=== PATIENT | female | born 1950 | race African-American/Black ===

== ENCOUNTER 2023-07-03 14:19 | Emergency (ER) | payer OTHER ==
--- NOTE | 2023-07-03 15:19 | RAD REPORT ---
EXAM DESCRIPTION: CT - Abdomen Pelvis Wo Contrast - 07/03/2023 2:53 pm CLINICAL HISTORY: Abdominal pain. ABD PAIN COMPARISON: No comparisons TECHNIQUE: CT imaging of the abdomen and pelvis was performed without contrast. Solid organ, bowel a nd vascular assessment is limited due to lack of IV and oral contrast. All CT scans are performed using dose optimization technique as appropriate and may include automated exposure control or mA/KV adjustment according to patient size. FINDINGS: The lower lung barillas are clear.Small hiatal hernia. The liver, spleen, pancreas, adrenal glands and kidneys are within normal limits for a limited non-co ntrast examination. No bowel obstruction, free air, free fluid or abscess. The appendix is normal. Prominent sigmoid div erticulosis coli. High density material seen within the rectum which may represent blood product or s tool. 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 Moderate lower lumbar degenerative changes. IMPRESSION: Prominent sigmoid diverticulosis coli is noted. High density material is present within the rectum which could be blood product and/or stool. Followu p colonoscopy would be suggested. A limited non-contrast examination was performed as detailed.
[2023-07-03 15:20] LABS: Absolute Lymphocytes (CBC) 1.6 K/uL (0.7-4.9); Hematocrit 35.4 % (36.0-45.0); Lymphocytes % 15.3 % (15.3-44.8); MPV 7.8 fL (7.6-11.3); Platelets 348 thou/uL (152-406); RBC Red Blood Cell Count 4.27 M/uL (3.86-4.86)
[2023-07-03 15:21] LABS: Protime INR 1.22
--- NOTE | 2023-07-03 15:25 | RAD REPORT ---
EXAM DESCRIPTION: RAD - Chest Single View - 07/03/2023 3:19 pm CLINICAL HISTORY: PAIN Chest pain. COMPARISON: CHEST SINGLE VIEW dated 11/15/2014; CHEST PA AND LAT 2 VIEW dated 11/27/2010 FINDINGS: Portable technique limits examination quality. The lungs are grossly clear. The heart is normal in size. No displaced fractures. IMPRESSION: No acute intrathoracic process suspected.
[2023-07-03] MEDS ORDERED: METRONIDAZOLE 500mg IVPB 500 MG/100 ML BAG IV ONE (15:27)
[2023-07-03] MEDS ORDERED: CIPROFLOXACIN 400mg IV 400 MG/200 ML BAG IV ONE (15:27)
[2023-07-03] MEDS ORDERED: NA CHLORIDE 0.9% 1,000 ML ONE ×2 (15:32→20:53)
[2023-07-03 15:38] LABS: Albumin 3.3 g/dL (3.4-5.0); Bilirubin Direct 0.1 mg/dL (0-0.2); Bilirubin Indirect, Calculated 0.3 mg/dL (0.2-0.8); Bilirubin Total 0.4 mg/dL (0.2-1.0); Potassium 4.1 mEq/L (3.5-5.1); Protein, Total 7.5 g/dL (6.4-8.2); Troponin High Sensitivity 34.6 pg/mL (<58.9)
--- NOTE | 2023-07-03 17:02 | EDPHYS ---
Physician Documentation [facility] Name: Ana Lozada Age: 73 yrs Sex: Female : 1950 Arrival Date: 07/03/2023 Time: 14:19 Bed 19 Private MD: ED Physician Farhad Diaz HPI: 07/03 16:53 This 73 yrs old Black Female presents to ER via Wheelchair with complaints of Rectal tania Bleeding. 16:53 The patient presents to the emergency department with bleeding from the rectum/anus, tania that is moderate. Onset: The symptoms/episode began/occurred just prior to arrival. Context: the patient has no known special context relating to the rectal area complaint(s). Modifying factors: The symptoms are alleviated by nothing, remaining still, The symptoms are aggravated by nothing. The patient has not experienced similar symptoms in the past. Historical: - Allergies: 14:59 Iodine; cm10 - Home Meds: 14:49 None [Active]; cm10 - PMHx: 14:49 None; cm10 - Immunization history:: Adult Immunizations up to date. - Social history:: Smoking status: Patient denies any tobacco usage or history of. ROS: 16:54 Constitutional: Negative for fever, chills, and weight loss, Eyes: Negative for injury, tania pain, redness, and discharge, ENT: Negative for injury, pain, and discharge, Neck: Negative for injury, pain, and swelling, Cardiovascular: Negative for chest pain, palpitations, and edema, Respiratory: Negative for shortness of breath, cough, wheezing, and pleuritic chest pain, Back: Negative for injury and pain, : Negative for injury, bleeding, discharge, and swelling, MS/Extremity: Negative for injury and deformity, Skin: Negative for injury, rash, and discoloration, Neuro: Negative for headache, weakness, numbness, tingling, and seizure, Psych: Negative for depression, anxiety, suicide ideation, homicidal ideation, and hallucinations, Allergy/Immunology: Negative for hives, rash, and allergies, Endocrine: Negative for neck swelling, polydipsia, polyuria, polyphagia, and marked weight changes, Hematologic/Lymphatic: Negative for swollen nodes, abnormal bleeding, and unusual bruising, 16:54 Abdomen/GI: Positive for rectal bleeding, Exam: 16:54 Constitutional: This is a well developed, well nourished patient who is awake, alert, tania and in no acute distress. Head/Face: Normocephalic, atraumatic. Eyes: Pupils equal round and reactive to light, extra-ocular motions intact. Lids and lashes normal. Conjunctiva and sclera are non-icteric and not injected. Cornea within normal limits. Periorbital areas with no swelling, redness, or edema. ENT: Nares patent. No nasal discharge, no septal abnormalities noted. Tympanic membranes are normal and external auditory canals are clear. Oropharynx with no redness, swelling, or masses, exudates, or evidence of obstruction, uvula midline. Mucous membranes moist. Neck: Trachea midline, no thyromegaly or masses palpated, and no cervical lymphadenopathy. Supple, full range of motion without nuchal rigidity, or vertebral point tenderness. No Meningismus. Chest/axilla: Normal chest wall appearance and motion. Nontender with no deformity. No lesions are appreciated. Cardiovascular: Regular rate and rhythm with a normal S1 and S2. No gallops, murmurs, or rubs. Normal PMI, no JVD. No pulse deficits. Respiratory: Lungs have equal breath sounds bilaterally, clear to auscultation and percussion. No rales, rhonchi or wheezes noted. No increased work of breathing, no retractions or nasal flaring. Back: No spinal tenderness. No costovertebral tenderness. Full range of motion. Female : Normal external genitalia. Skin: Warm, dry with normal turgor. Normal color with no rashes, no lesions, and no evidence of cellulitis. MS/ Extremity: Pulses equal, no cyanosis. Neurovascular intact. Full, normal range of motion. Neuro: Awake and alert, GCS 15, oriented to person, place, time, and situation. Cranial nerves II-XII grossly intact. Motor strength 5/5 in all extremities. Sensory grossly intact. Cerebellar exam normal. Normal gait. Psych: Awake, alert, with orientation to person, place and time. Behavior, mood, and affect are within normal limits. 16:54 ECG was reviewed by the Attending Physician. 16:54 Abdomen/GI: Inspection: abdomen appears normal, Bowel sounds: normal, Palpation: abdomen is soft and non-tender, Rectal exam: rectal tone normal, hemorrhoid(s), are not appreciated, mass, is not appreciated, swelling, is not appreciated, tenderness, is not appreciated, fecal impaction, is not appreciated, Liver: no appreciated palpable abnormalities, Hernia: not appreciated, Vital Signs: 14:47 BP 173 / 85; Pulse 89; Resp 18; Temp 97.7; Pulse Ox 100% ; Weight 80.74 kg; Pain 0/10; cm10 15:00 BP 161 / 69; Pulse 71; Resp 18; Pulse Ox 100% ; cp4 16:00 BP 162 / 74; Pulse 74; Resp 18; Pulse Ox 100% ; cp4 17:00 BP 152 / 73; Pulse 71; Resp 18; Pulse Ox 100% ; cp4 18:00 BP 140 / 85; Pulse 76; Resp 18; Pulse Ox 100% ; cp4 19:00 BP 138 / 67; Pulse 73; Resp 16 S; Pulse Ox 100% on R/A; jw7 20:00 BP 130 / 57; Pulse 72; Resp 17 S; Pulse Ox 100% on R/A; jw7 20:54 BP 127 / 51; Pulse 74; Resp 16 S; Pulse Ox 100% on R/A; jw7 14:47 Pain Scale: Adult cm10 MDM: 14:38 Patient medically screened. tania 16:58 Differential diagnosis: diverticulitis, hemorrhoids, hemorrhagic shock, varices, tania hemorrhoids. Data reviewed: vital signs, nurses notes, lab test result(s), EKG, radiologic studies, CT scan, plain films. Consideration of Admission/Observation Escalation of care including admission/observation considered. I considered the following discharge prescriptions or medication management in the emergency department Medications were administered in the Emergency Department. See MAR. Independent interpretation of the following test(s) in the Emergency Department EKG: See my EKG interpretation above. Test considered but Not performed: Ultrasound no abd usg. Historians other than the Patient: Daughter/Son: son well informed. Care significantly affected by the following chronic conditions: nsaid, no htn, no dm. Counseling: I had a detailed discussion with the patient and/or guardian regarding the historical points, exam findings, and any diagnostic results supporting the discharge/admit diagnosis, lab results, radiology results, the need to transfer to another facility, for higher level of care, [facility] does not immediately have the required specialist. 07/03 14:40 Order name: Basic Metabolic Panel; Complete Time: 16: [place] 07/03 14:40 Order name: CBC with Diff; Complete Time: 16: [place] 07/03 14:40 Order name: LFT's; Complete Time: 16: [place] 07/03 14:40 Order name: Magnesium; Complete Time: 16: [place] 07/03 14:40 Order name: NT PRO-BNP; Complete Time: 16: [place] 07/03 14:40 Order name: PT-INR; Complete Time: 16: [place] 07/03 14:40 Order name: Troponin HS; Complete Time: 16: [place] 07/03 14:40 Order name: Lipase; Complete Time: 16: [place] 07/03 14:40 Order name: Type And Screen; Complete Time: 16: [place] 07/03 14:40 Order name: XRAY Chest (1 view); Complete Time: 16: [place] 07/03 14:53 Order name: Abdomen ; Complete Time: 16: [facility] 07/03 14:40 Order name: EKG; Complete Time: 14:41 [place] 07/03 14:40 Order name: Cardiac monitoring; Complete Time: 15: [place] 07/03 14:40 Order name: EKG - Nurse/Tech; Complete Time: 16:39 [place] 07/03 14:40 Order name: IV Saline Lock; Complete Time: 15: [place] 07/03 14:40 Order name: Labs collected and sent; Complete Time: 15: [place] 07/03 14:40 Order name: O2 Per Protocol; Complete Time: 15: [place] 07/03 14:40 Order name: O2 Sat Monitoring; Complete Time: 15: [place] 07/03 14:40 Order name: IV Saline Lock - Large Bore; Complete Time: 15:08 [place] EC:54 Rate is 74 beats/min. Rhythm is regular. QRS [place] is Normal. UT interval is normal. QRS tania interval is normal. QT interval is normal. No Q waves. T waves are Normal. No ST changes noted. Clinical impression: NSR w/ Non-specific ST/T Changes and No evidence of ischemia. Interpreted by me. Reviewed by me. Administered Medications: 15:23 Drug: Ciprofloxacin IVPB 400 mg 200 ml IVPB once over 60 mins Volume: 200 ml; Route: cp4 IVPB; Infused Over: 60 mins; Site: right antecubital; 16:25 Follow up: Response: No adverse reaction; IV Status: Completed infusion cp4 15:23 Drug: NS 0.9% IV 1000 ml IV at 1 bolus Per protocol; 1000 mL bolus Route: IV; Rate: 1 cp4 bolus; Site: right antecubital; 20:52 Follow up: Response: No adverse reaction; IV Status: Completed infusion; IV Intake: jw7 1000ml 16:25 Drug: metroNIDAZOLE IVPB 500 mg 100 ml IVPB at 200 ml/hr once over 30 mins Volume: 100 cp4 ml; Route: IVPB; Rate: 200 ml/hr; Infused Over: 30 mins; Site: right antecubital; 18:48 Follow up: Response: No adverse reaction; IV Status: Completed infusion cp4 20:15 Drug: tranexamic acid 1000 mg IV at per protocol once; administer at a rate not to jw7 exceed 100 mg per min Route: IV; Rate: per protocol; Site: right antecubital; 20:52 Follow up: Response: No adverse reaction; IV Status: Completed infusion; IV Intake: [id number] 20:42 Drug: NS 0.9% IV 1000 ml IV at 1 bolus Per protocol; 1000 mL bolus Route: IV; Rate: 1 jw7 bolus; Site: right antecubital; 20:53 Follow up: Response: No adverse reaction; IV Status: Infusion continued upon transfer; jw7 IV Intake: 250ml Disposition Summary: 07/03/23 17:01 Transfer Ordered Notes: Transfer Location: [facility] tania Reason: Higher level of care tania Condition: Stable tania Problem: new tania Symptoms: have improved tnaia Accepting Physician: to [facility](07/03/23 20:55) jw7 Diagnosis - GI Bleed/ Gastrointestinal hemorrhage, unspecified - lower tania - Diverticulosis of large intestine without perforation or abscess with bleeding tania Forms: - Medication Reconciliation Form tania - SBAR form tania Signatures: Dispatcher [employer] Farhad Bruce MD MD cha Waits, Jodi RN RN jw7 Camilla Estrada RN RN cm10 Kate Sibley cp4 Corrections: (The following items were deleted from the chart) 14:49 14:49 PMHx: Unable to Obtain; cm10 cm10 14:53 14:41 Abdomen Pelvis W Con+CT.RAD.BRZ ordered. EDMS EDMS 14:59 14:49 Allergies: No Known Allergies; cm10 cm10 18:21 17:01 to [facility] tania 20:55 18:21 to [facility] jw7
--- NOTE | 2023-07-03 17:02 | ER ---
Nurse's Notes [facility] Name: Ana Lozada Age: 73 yrs Sex: Female : 1950 Arrival Date: 07/03/2023 Time: 14:19 Bed 19 Private MD: Diagnosis: GI Bleed/ Gastrointestinal hemorrhage, unspecified-lower;Diverticulosis of large intestine without perforation or abscess with bleeding Presentation: 07/03 14:47 Chief complaint: Patient states: Rectal bleeding onset today at 1200. Pt states that cm10 she was sitting in her chair when the bleeding started. Pt denies any pain. pt noted to be bleeding in triage. Coronavirus screen: Vaccine status: Patient reports receiving the 2nd dose of the covid vaccine. Client denies travel out of the [place] in the last 14 days. Ebola Screen: Patient denies travel to an Ebola-affected area in the 21 days before illness onset. No symptoms or risks identified at this time. Initial Sepsis Screen: Does the patient meet any 2 criteria? No. Patient's initial sepsis screen is negative. Does the patient have a suspected source of infection? No. Patient's initial sepsis screen is negative. Risk Assessment: Do you want to hurt yourself or someone else? Patient reports no desire to harm self or others. Onset of symptoms was July 03, 2023. 14:47 Method Of Arrival: Wheelchair cm10 14:47 Acuity: TAMAR 2 cm10 Historical: - Allergies: 14:59 Iodine; cm10 - Home Meds: 14:49 None [Active]; cm10 - PMHx: 14:49 None; cm10 - Immunization history:: Adult Immunizations up to date. - Social history:: Smoking status: Patient denies any tobacco usage or history of. Screenin:46 [facility] ED Fall Risk Assessment (Adult) History of falling in the last 3 months, cp4 including since admission No falls in past 3 months (0 pts) Confusion or Disorientation No (0 pts) Intoxicated or Sedated No (0 pts) Impaired Gait No (0 pts) Mobility Assist Device Used No (0 pt) Altered Elimination No (0 pt) Score/Fall Risk Level 0 - 2 = Low Risk Oriented to surroundings, Maintained a safe environment, Educated pt \\T\\ family on fall prevention, incl call for assistance when getting out of bed, Assessed \\T\\ reinforced patient's understanding of fall precautions, Hourly rounding (assess needs \\T\\ fall precautionary measures) done. Abuse screen: Denies threats or abuse. Nutritional screening: No deficits noted. Tuberculosis screening: No symptoms or risk factors identified. Assessment: 16:46 General: Appears in no apparent distress. Behavior is calm, cooperative, appropriate cp4 for age. Pain: Denies pain. 19:29 General: Appears in no apparent distress. comfortable, Behavior is calm, cooperative. jw7 Pain: Denies pain. Neuro: Mari Agitation-Sedation Scale (RASS): 0 - Alert and Calm Level of Consciousness is awake, alert, obeys commands, Oriented to person, place, time, situation. Cardiovascular: Capillary refill < 3 seconds JVD is absent Patient's skin is warm and dry. Respiratory: Airway is patent Trachea midline Respiratory effort is even, unlabored, Respiratory pattern is regular, symmetrical. GI: Abdomen is round non-distended. : No deficits noted. No signs and/or symptoms were reported regarding the genitourinary system. EENT: No deficits noted. No signs and/or symptoms were reported regarding the EENT system. Derm: Skin is intact, is healthy with good turgor, Skin is dry, Skin is normal, Skin temperature is warm. Musculoskeletal: Circulation, motion, and sensation intact. Range of motion: intact in all extremities. 20:00 General: Pt's Son asked for help and stated "She all of the sudden sat up straight and jw7 stared at me like she didn't know who I was and wouldn't answer me when I tried to talk to her and I noticed blood on her blanket". Upon inspection of patient copious amount of blood noted on blankets and sheets, several large blood clots noted when cleaning the patient. Provider Notified. Patient is Alert and Oriented X3, vital signs are stable: BP 130/57, 73 heart rate, 100% O2 on RA, 17 Respiratory Rate. . 20:53 Reassessment: Patient appears in no apparent distress at this time. Patient and/or jw7 family updated on plan of care and expected duration. Pain level reassessed. Patient is alert, oriented x 3, equal unlabored respirations, skin warm/dry/pink. Vital Signs: 14:47 BP 173 / 85; Pulse 89; Resp 18; Temp 97.7; Pulse Ox 100% ; Weight 80.74 kg; Pain 0/10; cm10 15:00 BP 161 / 69; Pulse 71; Resp 18; Pulse Ox 100% ; cp4 16:00 BP 162 / 74; Pulse 74; Resp 18; Pulse Ox 100% ; cp4 17:00 BP 152 / 73; Pulse 71; Resp 18; Pulse Ox 100% ; cp4 18:00 BP 140 / 85; Pulse 76; Resp 18; Pulse Ox 100% ; cp4 19:00 BP 138 / 67; Pulse 73; Resp 16 S; Pulse Ox 100% on R/A; jw7 20:00 BP 130 / 57; Pulse 72; Resp 17 S; Pulse Ox 100% on R/A; jw7 20:54 BP 127 / 51; Pulse 74; Resp 16 S; Pulse Ox 100% on R/A; jw7 14:47 Pain Scale: Adult cm10 ED Course: 14:23 Patient arrived in ED. mg5 14:38 Farhad Diaz MD is Attending Physician. tania 14:49 Triage completed. cm10 14:49 Arm band placed on Patient placed in an exam room, on a stretcher. cm10 14:53 Abdomen In Process Unspecified. EDMS 15:07 Kate Sibley is Primary Nurse. cp4 15:08 Type And Screen Sent. cp4 15:08 Lipase Sent. cp4 15:08 Basic Metabolic Panel Sent. cp4 15:08 CBC with Diff Sent. cp4 15:08 LFT's Sent. cp4 15:08 Magnesium Sent. cp4 15:08 NT PRO-BNP Sent. cp4 15:08 PT-INR Sent. cp4 15:08 Troponin HS Sent. cp4 15:08 No provider procedures requiring assistance completed. Inserted saline lock: 20 gauge cp4 in right antecubital area, using aseptic technique. Blood collected. 15:21 XRAY Chest (1 view) In Process Unspecified. EDMS 16:39 initiated transfer to [facility]. bd 16:46 Bed in low position. Call light in reach. Side rails up X 1. cp4 19:00 Provided Education on: need for transfer. jw7 20:55 Patient transferred, IV remains in place. jw7 Administered Medications: 15:23 Drug: Ciprofloxacin IVPB 400 mg 200 ml IVPB once over 60 mins Volume: 200 ml; Route: cp4 IVPB; Infused Over: 60 mins; Site: right antecubital; 16:25 Follow up: Response: No adverse reaction; IV Status: Completed infusion cp4 15:23 Drug: NS 0.9% IV 1000 ml IV at 1 bolus Per protocol; 1000 mL bolus Route: IV; Rate: 1 cp4 bolus; Site: right antecubital; 20:52 Follow up: Response: No adverse reaction; IV Status: Completed infusion; IV Intake: jw7 1000ml 16:25 Drug: metroNIDAZOLE IVPB 500 mg 100 ml IVPB at 200 ml/hr once over 30 mins Volume: 100 cp4 ml; Route: IVPB; Rate: 200 ml/hr; Infused Over: 30 mins; Site: right antecubital; 18:48 Follow up: Response: No adverse reaction; IV Status: Completed infusion cp4 20:15 Drug: tranexamic acid 1000 mg IV at per protocol once; administer at a rate not to jw7 exceed 100 mg per min Route: IV; Rate: per protocol; Site: right antecubital; 20:52 Follow up: Response: No adverse reaction; IV Status: Completed infusion; IV Intake: [id number] 20:42 Drug: NS 0.9% IV 1000 ml IV at 1 bolus Per protocol; 1000 mL bolus Route: IV; Rate: 1 jw7 bolus; Site: right antecubital; 20:53 Follow up: Response: No adverse reaction; IV Status: Infusion continued upon transfer; jw7 IV Intake: 250ml Medication: 16:46 VIS not applicable for this client. cp4 Intake: 20:52 IV: 1000ml; Total: 1000ml. jw7 20:52 IV: 20ml; Total: 1020ml. jw7 20:53 IV: 250ml; Total: 1270ml. jw7 Outcome: 17:01 ER care complete, transfer ordered by . tania 20:55 Transferred by ground EMS to [facility], [facility], jw7 20:55 Condition: stable 20:55 Instructed on the need for transfer, Demonstrated understanding of instructions, 20:55 Patient left the ED. jw7 Signatures: Dispatcher [employer] EDMS Mansi Wang Corey, MD MD cha Waits, Jodi, RN RN jw7 Camilla Estrada RN RN 10 Susana Bennett Kate Dodd 4 Corrections: (The following items were deleted from the chart) 14 14:49 PMHx: Unable to Obtain; cm10 cm10 14:59 14:49 Allergies: No Known Allergies; cm10 cm10
[2023-07-03] MEDS ORDERED: TRANEXAMIC ACID 1,000 MG/10 ML VIAL IV ONE (20:07)
[2023-07-04 00:43] VITALS: TEMP 97.7; O2SAT 100
[2023-07-04 01:02] VITALS: BP 127/51
== END 2023-07-03 20:55 | disposition short-term general hospital (02) ==
LOC: ER 14:19
DX: K57.30 Diverticulosis of large intestine without perforation or abscess without bleeding (principal); Z91.048 Other nonmedicinal substance allergy status
CPT/HCPCS: 85025; 80048; 36415; 86900; 83735; 86850; 85610; 86901; 80076; 84484; 83690; 83880; 74176; 71045; J0744; J7030 ×2; 93005